=== PATIENT | female | born 1940 | race Caucasian/White ===

== ENCOUNTER 2025-06-16 18:09 | Emergency (ER) | payer OTHER ==
[2025-06-16 18:15] VITALS: RESP 16; TEMP 98.5; BMI 27.9
[2025-06-16 20:36] LABS: ABSOLUTE IMMATURE GRANULOCYTES 0.02 x10^3/uL (0.0-0.031); BASOPHILS # 0.03 x10^3/uL (0.01-0.08); EOSINOPHIL % 0.0 % (0.7-5.8); EOSINOPHILS # 0.00 x10^3/uL (0.04-0.36); MCHC 33.4 g/dl (32.2-35.5); MEAN CELL VOLUME 90.8 fl (79.4-94.8); MEAN PLT VOLUME 11.4 fl (9.4-12.3); MONOCYTE # 0.16 x10^3/uL (0.24-0.86); MONOCYTE % 1.9 % (4.7-12.5); RDW 12.9 % (12.5-17.0)
[2025-06-16] MEDS: MINERAL OIL ENEMA 133 ML ENEMA RC ONE (20:41)
[2025-06-16 21:13] LABS: GLUCOSE,RANDOM 134.0 mg/dL (74-106); TOT PROT 9.0 g/dl (6.4-8.2)
[2025-06-16 21:14] LABS: CO2 25.0 mmol/L (21-32)
[2025-06-16 21:16] LABS: ALK PHOS 126.0 U/L (40-150)
[2025-06-16 21:18] LABS: SGOT/AST 46.0 U/L (5-34); SGPT/ALT 32.0 U/L (0-55)
[2025-06-16 21:19] LABS: CREATININE 0.48 mg/dL (0.55-1.3)
[2025-06-17] MEDS ORDERED: MAGNESIUM CITRATE 300 ML BOTTLE ONE (00:11)
[2025-06-17 00:19] VITALS: BP 147/89; PULSE 68
[2025-06-17] MEDS: MAGNESIUM CITRATE 300 ML BOTTLE PO ONE (00:50)
== END 2025-06-17 01:02 | disposition home or self-care (01) ==
LOC: JER 18:09
DX: K59.00 Constipation, unspecified (principal); R11.2 Nausea with vomiting, unspecified; R63.8 Other symptoms and signs concerning food and fluid intake; R10.32 Left lower quadrant pain
CPT/HCPCS: 36415; 74177-TC; 80053; 83605; 83735; 84484; 85025; 93005; 93010; 99285-25; Q9967